=== PATIENT | male | born 1950 | race Caucasian/White ===

== ENCOUNTER 2020-04-30 09:53 | Outpatient (RCR) | payer MEDICARE, SELFPAY ==
--- NOTE | 2020-04-30 10:43 | PTOPEVAL ---
Thank you for referring Oneil Stokes to [facility].? The patient is scheduled to be seen for therapy? __2__x/week for 10 visits. Please review, sign, date and return this plan of care KARAN. I agree with and certify that the following plan of care is medically necessary. Referring Physician Date Admitting Provider: Attending Provider: MARCELLE SWIFT Referring Provider: *PT Outpatient Evaluation Start: 04/30/20 10:02 Freq: Status: Active Protocol: Document 04/30/20 10:02 BANDAR (Rec: 04/30/20 10:42 BANDAR [email or web address]) Therapy Assessment Status Assessment Status Assessment Status Evaluation Evaluation Information Problem Diagnosis s/p right knee replacment Onset 04/24/20 Subjective Information Pt. reports he underwent knee Query Text:As Reported By Patient/ replacement on 04/24/20. He Family states that he has been doing exercise at home consisting of heel slides and described quad sets 3 times a day. He states that he is currently using a walker. Pt. describes no complication with sleep. He reports current pain at 3/ 10 and can increase to an 8/10 that can be relieved with pain meds. He reports that his goal is to return to walking normal. 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 Pain Assessment Timing of Pain Assessment Timing of Pain Assessment Pre-Treatment Pain Scale Pain Scale Used Numeric (1 - 10) Self Report Pain Assessment Right Knee(s) Reported Pain Level 3 Pain Description Aching Pain Frequency Continuous Pain Aggravating Factors Exercise/Activity,Walking, Weight Bearing/Standing Pain Score Pain Sc
== END 2020-05-30 08:35 | disposition home or self-care (01) ==
LOC: CHSPT 09:53
PROVIDERS: PCP Internal Medicine
DX: M17.11 Unilateral primary osteoarthritis, right knee (principal)
CPT/HCPCS: 97016; 97110; 97161

== ENCOUNTER 2020-09-11 11:28 | Outpatient (CLI) | payer MEDICARE, SELFPAY ==
--- NOTE | ~2020-09-11 | XR_ITS ---
EXAMINATION: XR foot LT min 3V DATE: 09/11/2020 11:49 INDICATION: Left foot injury. TECHNIQUE: 4 views of left foot were obtained. COMPARISON: None. FINDINGS: Bone alignment is normal. No fracture. There is mild osteoarthritis of first metatarsophala ngeal joint and some of the interphalangeal joints and midfoot joints. There is severe osteoarthritis of first and third tarsometatarsal joints. There is an enthesophyte at plantar aspect of calcaneal t uberosity. IMPRESSION: 1. Polyarticular osteoarthritis. Reviewed, dictated and finalized at location B.
== END 2020-09-11 11:29 | disposition home or self-care (01) ==
LOC: CHSIMG 11:31
PROVIDERS: PCP Internal Medicine; Visit Provider Internal Medicine
DX: S99.922A Unspecified injury of left foot, initial encounter (principal)
CPT/HCPCS: 73630

== ENCOUNTER 2021-06-30 08:19 | Outpatient (CLI) | payer MEDICARE, SELFPAY ==
[2021-06-30 08:30] LABS: Basophils Absolute Auto 0.02 K/mm3 (0.00-0.10); Basophils Percent Auto 0.3 % (0.0-1.0); Eosinophils Absolute Auto 0.21 K/mm3 (0.02-0.50); Eosinophils Percent Auto 2.8 % (1.0-6.0); Hemoglobin 15.6 g/dL (12.4-15.3); Immature Granulocyte Absolute 0.02 K/mm3 (0.00-0.00); Immature Granulocyte Percent A 0.3 % (0.0-0.0); Lymphocytes Absolute Auto 2.34 K/mm3 (1.10-4.50); Lymphocytes Percent Auto 30.7 % (18.0-42.0); Mean Corpuscular HGB Conc 33.9 g/dL (32.0-36.0); Mean Corpuscular Hemoglobin 32.6 pg (27.0-31.0); Mean Corpuscular Volume 96.2 fL (78.0-102.0); Mean Platelet Volume 9.3 fl (8.7-11.0); Monocytes Percent Auto 9.2 % (2.0-11.0); Neutrophils Absolute Auto 4.3 K/mm3 (1.7-7.2); Neutrophils Percent Auto 56.7 % (50.0-70.0); Platelet Count Result 314 K/mm3 (150-420); Red Blood Count 4.78 M/mm3 (4.70-6.10); White Blood Count 7.6 K/mm3 (4.8-10.8)
[2021-06-30 08:45] LABS: Add Urine Microscopic? YES; Appearance Urine Clear (Clear); Bilirubin Urine Negative (Negative); Blood Urine 1+ (Negative); Color Urine Yellow (Yellow); Glucose Urine UA Negative (Negative); Ketones Urine Negative (Negative); Leukocyte Esterase Ur Negative (Negative); Nitrate Urine Negative (Negative); Protein Urine Negative (Negative); Specific Grav Ur >= 1.030 (1.010-1.020); Urobilinogen Urine 0.2 mg/dL (0.2-1.0)
[2021-06-30 08:54] LABS: Bacteria Urine Trace /hpf; Mucus Urine Moderate /lpf; RBC Urine 0-2 /hpf (0-2); WBC Urine None seen /hpf (0-3)
[2021-06-30 08:55] LABS: Hemoglobin A1C 5.9 % (<5.7)
[2021-06-30 09:39] LABS: Alanine Aminotransferase 26 U/L (16-63); Albumin Level 3.9 g/dL (3.4-5.0); Alkaline Phosphatase 83 U/L (46-116); Anion Gap 8 mmol/L (8-16); Aspartate Amino Transferase 15 U/L (15-37); Bilirubin,Total 0.4 mg/dL (0.00-1.00); Blood Urea Nitrogen 21 mg/dL (7-18); Carbon Dioxide 29 mmol/L (21-32); Chloride 104 mmol/L (98-108); Cholesterol 189 mg/dL (0-200); Estimated Glomerular Filt Rate > 60; Free T3 2.98 pg/mL (2.18-3.98); Free T4 Free Thyroxine 0.87 ng/dL (0.76-1.46); Glucose 114 mg/dL (70-99); HDL Direct 51 mg/dL (40-60); LDL Cholesterol Calculated 119 mg/dL (<130); Osmolality Calculated 296 mOsm/kg (285-295); Potassium 4.8 mmol/L (3.5-5.1); Prostate Specific Antigen 1.2 ng/mL (< OR = 4.0); Sodium 141 mmol/L (136-145); Thyroid Stimulating Hormone 1.18 uIU/mL (0.36-3.74); Total Protein 7.1 g/dL (6.4-8.2); Triglycerides 93 mg/dL (0-150)
== END 2021-06-30 08:20 | disposition home or self-care (01) ==
PROVIDERS: PCP Internal Medicine; Visit Provider Internal Medicine
DX: E78.2 Mixed hyperlipidemia (principal); Z00.00 Encounter for general adult medical examination without abnormal findings; I10 Essential (primary) hypertension; I48.0 Paroxysmal atrial fibrillation; Z12.5 Encounter for screening for malignant neoplasm of prostate; R73.01 Impaired fasting glucose
CPT/HCPCS: 36415; 80053; 80061; 81001; 83036; 83735; 84153; 84439; 84443; 84481; 85025; G0103

== ENCOUNTER 2022-02-17 08:24 | Outpatient (CLI) | payer MEDICARE, SELFPAY ==
[2022-02-17 08:51] LABS: Hemoglobin A1C 5.3 % (<5.7)
[2022-02-17 09:25] LABS: Anion Gap 4 mmol/L (8-16); Blood Urea Nitrogen 17 mg/dL (7-18); Carbon Dioxide 31 mmol/L (21-32); Chloride 108 mmol/L (98-108); Estimated Glomerular Filt Rate > 60; Glucose 112 mg/dL (70-99); Osmolality Calculated 298 mOsm/kg (285-295); Potassium 5.3 mmol/L (3.5-5.1); Sodium 143 mmol/L (136-145)
== END 2022-02-17 08:25 | disposition home or self-care (01) ==
LOC: CHSLAB 08:28
PROVIDERS: PCP Internal Medicine; Visit Provider Internal Medicine
DX: R73.01 Impaired fasting glucose (principal)
CPT/HCPCS: 36415; 80048; 83036

== ENCOUNTER 2022-09-03 07:45 | Outpatient (CLI) | payer MEDICARE, SELFPAY ==
[2022-09-03 08:03] LABS: Basophils Absolute Auto 0.04 K/mm3 (0.00-0.10); Basophils Percent Auto 0.5 % (0.0-1.0); Eosinophils Absolute Auto 0.19 K/mm3 (0.02-0.50); Eosinophils Percent Auto 2.5 % (1.0-6.0); Hematocrit 44.5 % (37.0-46.0); Hemoglobin 15.1 g/dL (12.4-15.3); Immature Granulocyte Absolute 0.04 K/mm3 (0.00-0.00); Immature Granulocyte Percent A 0.5 % (0.0-0.0); Lymphocytes Percent Auto 27.5 % (18.0-42.0); Mean Corpuscular HGB Conc 33.9 g/dL (32.0-36.0); Mean Corpuscular Hemoglobin 32.5 pg (27.0-31.0); Mean Corpuscular Volume 95.9 fL (78.0-102.0); Mean Platelet Volume 9.1 fl (8.7-11.0); Monocytes Absolute Auto 0.69 K/mm3 (0.10-0.90); Neutrophils Absolute Auto 4.6 K/mm3 (1.7-7.2); Platelet Count Result 320 K/mm3 (150-420); Red Blood Count 4.64 M/mm3 (4.70-6.10); Red Cell Distribution Width 13.2 % (11.6-14.4); White Blood Count 7.7 K/mm3 (4.8-10.8)
[2022-09-03 08:11] LABS: Appearance Urine Clear (Clear); Bilirubin Urine Negative (Negative); Blood Urine Negative (Negative); Color Urine Light Yellow (Yellow); Glucose Urine UA Negative (Negative); Ketones Urine Negative (Negative); Leukocyte Esterase Ur Negative LEU/UL (Negative); Nitrate Urine Negative (Negative); Protein Urine Negative (Negative); Specific Grav Ur 1.025 (1.010-1.020); Urobilinogen Urine 0.2 mg/dL (0.2-1.0)
[2022-09-03 08:13] LABS: Add Urine Microscopic? NO
[2022-09-03 08:21] LABS: Hemoglobin A1C 5.7 % (<5.7)
[2022-09-03 08:54] LABS: Alanine Aminotransferase 26 U/L (16-63); Albumin Level 3.7 g/dL (3.4-5.0); Alkaline Phosphatase 85 U/L (46-116); Anion Gap 7 mmol/L (8-16); Aspartate Amino Transferase 19 U/L (15-37); Bilirubin,Total 0.5 mg/dL (0.00-1.00); Blood Urea Nitrogen 19 mg/dL (7-18); Carbon Dioxide 29 mmol/L (21-32); Chloride 105 mmol/L (98-108); Cholesterol 202 mg/dL (0-200); Estimated Glomerular Filt Rate > 60; Free T3 3.04 pg/mL (2.18-3.98); Glucose 105 mg/dL (70-99); HDL Direct 52 mg/dL (40-60); LDL Cholesterol Calculated 132 mg/dL (<130); Osmolality Calculated 294 mOsm/kg (285-295); Potassium 4.8 mmol/L (3.5-5.1); Prostate Specific Antigen 1.3 ng/mL (< OR = 4.0); Sodium 141 mmol/L (136-145); Thyroid Stimulating Hormone 1.12 uIU/mL (0.36-3.74); Triglycerides 91 mg/dL (0-150)
== END 2022-09-03 07:46 | disposition home or self-care (01) ==
LOC: CHSLAB 07:49
PROVIDERS: PCP Internal Medicine; Visit Provider Internal Medicine
DX: R73.01 Impaired fasting glucose (principal); E78.2 Mixed hyperlipidemia; Z12.5 Encounter for screening for malignant neoplasm of prostate; N39.0 Urinary tract infection, site not specified
CPT/HCPCS: 36415; 80053; 80061; 81003; 83036; 84153; 84439; 84443; 84481; 85025; G0103

== ENCOUNTER 2023-05-05 16:22 | Outpatient (CLI) | payer MEDICARE, SELFPAY ==
[2023-05-05 16:37] LABS: Basophils Absolute Auto 0.03 K/mm3 (0.00-0.10); Basophils Percent Auto 0.3 % (0.0-1.0); Eosinophils Absolute Auto 0.14 K/mm3 (0.02-0.50); Eosinophils Percent Auto 1.6 % (1.0-6.0); Hematocrit 44.6 % (37.0-46.0); Hemoglobin 14.9 g/dL (12.4-15.3); Immature Granulocyte Absolute 0.02 K/mm3 (0.00-0.00); Immature Granulocyte Percent A 0.2 % (0.0-0.0); Lymphocytes Absolute Auto 1.99 K/mm3 (1.10-4.50); Lymphocytes Percent Auto 23.1 % (18.0-42.0); Mean Corpuscular HGB Conc 33.4 g/dL (32.0-36.0); Mean Corpuscular Hemoglobin 31.7 pg (27.0-31.0); Mean Corpuscular Volume 94.9 fL (78.0-102.0); Mean Platelet Volume 9.2 fl (8.7-11.0); Monocytes Absolute Auto 0.81 K/mm3 (0.10-0.90); Monocytes Percent Auto 9.4 % (2.0-11.0); Neutrophils Absolute Auto 5.6 K/mm3 (1.7-7.2); Neutrophils Percent Auto 65.4 % (50.0-70.0); Platelet Count Result 307 K/mm3 (150-420); Red Cell Distribution Width 12.7 % (11.6-14.4); White Blood Count 8.6 K/mm3 (4.8-10.8)
== END 2023-05-05 16:23 | disposition home or self-care (01) ==
LOC: CHSLAB 16:25
PROVIDERS: PCP Internal Medicine; Visit Provider Internal Medicine
DX: J02.9 Acute pharyngitis, unspecified (principal)
CPT/HCPCS: 36415; 85025

== ENCOUNTER 2023-06-02 07:59 | Outpatient (CLI) | payer MEDICARE, SELFPAY ==
--- NOTE | ~2023-06-02 | CT_ITS ---
CT scan of the Neck Technique: 2.5 mm axial scans were obtained through the neck after intravenous administration of 75 c c Omnipaque 350. Coronal and sagittal reconstructions of the neck were obtained. Dose reduction techn ique was used on this scan by utilizing automated exposure control and iterative reconstruction techn ique. The dose-length product (DLP) was 449.74 mGy-cm. Clinical History: Acute tonsillitis Findings: There is no evidence of any significant cervical lymphadenopathy. Several small, nonenlarged jugulo- digastric and posterior cervical lymph nodes are noted bilaterally. Parapharyngeal spaces appear norm al bilaterally. The parotid and submandibular glands appear normal. The pharyngeal mucosal spaces appear normal. No soft tissue masses are seen in the neck. The thyroid gland appears normal. Images of the lung apices reveal no abnormalities. Impression: No significant abnormalities noted. Reviewed, dictated and finalized at [facility]. ENT DRIVING INSTRUCTOR Impression: No significant abnormalities noted.
[2023-06-02 08:19] LABS: Estimated Glomerular Filt Rate > 60
== END 2023-06-02 08:00 | disposition home or self-care (01) ==
LOC: CHSIMG 08:01
PROVIDERS: PCP Internal Medicine; Visit Provider Internal Medicine
DX: J03.90 Acute tonsillitis, unspecified (principal)
CPT/HCPCS: 70491; Q9967

== ENCOUNTER 2023-10-13 07:48 | Outpatient (CLI) | payer MEDICARE, SELFPAY ==
[2023-10-13 08:02] LABS: Basophils Absolute Auto 0.03 K/mm3 (0.00-0.10); Basophils Percent Auto 0.4 % (0.0-1.0); Eosinophils Absolute Auto 0.16 K/mm3 (0.02-0.50); Eosinophils Percent Auto 2.2 % (1.0-6.0); Hematocrit 42.4 % (37.0-46.0); Hemoglobin 14.5 g/dL (12.4-15.3); Immature Granulocyte Absolute 0.03 K/mm3 (0.00-0.00); Immature Granulocyte Percent A 0.4 % (0.0-0.0); Lymphocytes Absolute Auto 1.79 K/mm3 (1.10-4.50); Lymphocytes Percent Auto 24.7 % (18.0-42.0); Mean Corpuscular HGB Conc 34.2 g/dL (32-36); Mean Corpuscular Hemoglobin 32.6 pg (27.0-31.0); Mean Corpuscular Volume 95.3 fL (78.0-102.0); Mean Platelet Volume 9.1 fl (8.7-11.0); Monocytes Absolute Auto 0.59 K/mm3 (0.10-0.90); Monocytes Percent Auto 8.1 % (2.0-11.0); Neutrophils Absolute Auto 4.65 K/mm3 (1.70-7.20); Neutrophils Percent Auto 64.2 % (50.0-70.0); Platelet Count Result 272 K/mm3 (150-420); Red Blood Count 4.45 M/mm3 (4.70-6.10); Red Cell Distribution Width 12.9 % (11.6-14.4); White Blood Count 7.3 K/mm3 (4.8-10.8)
[2023-10-13 08:04] LABS: Appearance Urine Clear (Clear); Bilirubin Urine Negative (Negative); Blood Urine Negative (Negative); Color Urine Light Yellow (Yellow); Glucose Urine UA Negative (Negative); Ketones Urine Negative (Negative); Leukocyte Esterase Ur Negative (Negative); Nitrate Urine Negative (Negative); Protein Urine Negative (Negative); Specific Grav Ur 1.025 (1.010-1.020); Urobilinogen Urine 0.2 mg/dL (0.2-1.0)
[2023-10-13 08:07] LABS: Add Urine Microscopic? NO
[2023-10-13 08:20] LABS: Hemoglobin A1C 5.7 % (<5.7)
[2023-10-13 08:52] LABS: Alanine Aminotransferase 24 U/L (16-63); Albumin Level 3.5 g/dL (3.4-5.0); Alkaline Phosphatase 78 U/L (46-116); Anion Gap 9 mmol/L (4-12); Aspartate Amino Transferase 14 U/L (15-37); Bilirubin,Total 0.3 mg/dL (0.00-1.00); Blood Urea Nitrogen 20 mg/dL (7-18); Calcium 8.5 mg/dL (8.5-10.1); Carbon Dioxide 23 mmol/L (21-32); Chloride 107 mmol/L (98-108); Cholesterol 185 mg/dL (0-200); Estimated Glomerular Filt Rate > 60; Free T3 2.56 pg/mL (2.18-3.98); Free T4 Free Thyroxine 0.78 ng/dL (0.76-1.46); Glucose 111 mg/dL (70-99); HDL Direct 47 mg/dL (40-60); LDL Cholesterol Calculated 123 mg/dL (<130); Magnesium 2.2 mg/dL (1.8-2.4); Osmolality Calculated 291 mOsm/kg (285-295); Potassium 4.5 mmol/L (3.5-5.1); Sodium 139 mmol/L (136-145); Thyroid Stimulating Hormone 1.01 uIU/mL (0.36-3.74); Total Protein 6.7 g/dL (6.4-8.2); Triglycerides 75 mg/dL (0-150)
--- NOTE | 2023-11-12 15:13 | P.PCNHOL_ITS ---
Holter/Event Monitor Holter/Event Monitor Date of procedure: 10/13/23 Holter/Event Procedure: Event Monitor Indications: PAF Conclusion: 1. 13 days event monitor between 10/13/23-10/29/23. There are 33 available transm issions for analysis. 2. Predominant rhythm is sinus rhythm. HR range 48-136 bpm; average HR 69 bpm. HR at 48 bpm was on 10/16/23 at 06:24. 3. There are occasional premature supraventricular complexes with total burden of 1%. There is 1 episode of atrial fibrillation at 95 bpm lasting <10 seconds on 10/27/23 at 09:39. 4. There are occasional premature ventricular complexes with total burden of 1%. No ventricular tachycardia. 5. No significant pauses greater than 2 seconds. 6. Patient reports 19 episodes of symptoms of skipped beat, symptoms other than listed which demonstrate sinus rhythm, HR range 53-94 bpm with 4 episodes of PAC's and 9 episodes of PVC's.
== END 2023-10-13 07:49 | disposition home or self-care (01) ==
LOC: CHSCARD 07:51
PROVIDERS: PCP Internal Medicine; Visit Provider Internal Medicine
DX: I48.0 Paroxysmal atrial fibrillation (principal); R73.01 Impaired fasting glucose; E78.2 Mixed hyperlipidemia; Z12.5 Encounter for screening for malignant neoplasm of prostate
CPT/HCPCS: 36415; 80053; 80061; 81003; 83036; 83735; 84153; 84439; 84443; 84481; 85025; 93270; G0103

== ENCOUNTER 2024-12-01 07:58 | Outpatient (CLI) | payer MEDICARE, SELFPAY ==
--- OUTSIDE RECORDS SUMMARY | 2024-12-01 08:01 | XMS_ITS | Encounter Summary ---
Author Organization [facility] Address [address] [place] [address] Care Team Providers Care Sewing Machine Operator Name Role Phone Evangelista Santacruz MD Primary Care Provider + [phone] Reason for Visit * Reason Onset Date Comments covid screening 10/25/2019 lm for the pt wi th ct info Encounter Details Date Type Department Care Team (Late st Contact Info) Description 10/25/2019 Telephone 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
--- OUTSIDE RECORDS SUMMARY | 2024-12-01 08:01 | XMS_ITS | Encounter Summary ---
Author Organization [facility] Address [address] [place] [address] Phone Care Team Providers Care Mri Assistant Name Role Phone Evangelista Santacruz MD Primary Care Provider [phone] Encounter Details Date Type Department Care Team (Latest Contact Info) Description 11/30/2024 Orders Only [facility] Scanning, Provider Social History Tobacco Use Types Packs/Day Years Used Date Smoking Tobacco: Never Smokeless Tobacco: Never Alcohol Use Standard Drinks/Week Comments Yes 0 (1 standard drink = 0.6 oz pur e alcohol) Personal Safety Answer Date Recorded Getting School Help Needed Not on file 05/27 Sex and Gender Information Value Date Recorded Sex Assigned at Not on file 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 Gender Identity Not on file Sexual Orientation Not on file documented as of this encounter Plan of Treatment Not on file documented as of this encounter Procedures Procedure Name Priority Date/Time Associated Diagnosis Comments CARDIOLOGY DOCUMENT SCAN 11/30/2024 documented in this encounter Results * Cardiology Document Scan (11/30/2024) Anatomical Region Laterality Modality Other us Provider Scanning CV CARDIAC SERVICES PROCEDURES Final Result documented in this encounter Visit Diagnoses Not on filedocumented in this encounter Care Teams Mri Assistant Relationship Specialty Start Date End Date Evangelista Santacruz MD [address] [place] [address] PCP - General Internal Medicine 08/22/19 documented as of this encounter
--- OUTSIDE RECORDS SUMMARY | 2024-12-01 08:01 | XMS_ITS | Encounter Summary ---
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 Gender Identity Not on file Sexual Orientation Not on file documented as of this encounter Plan of Treatment Not on file documented as of this encounter Procedures Procedure Name Priority Date/Time Associated Diagnosis Comments CARDIOLOGY DOCUMENT SCAN 10/13/2023 documented in this encounter Results * Cardiology Document Scan (10/13/2023) Anatomical Region Laterality Modality Other us Provider Scanning CV CARDIAC SERVICES PROCEDURES Final Result documented in this encounter Visit Diagnoses Not on filedocumented in this encounter Care Teams Correction Lieutenant Relationship Specialty Start Date End Date Evangelista Santacruz MD [address] [place] [address] PCP - General Internal Medicine 08/22/19 documented as of this encounter
--- OUTSIDE RECORDS SUMMARY | 2024-12-01 08:01 | XMS_ITS | Clinical Summary ---
Author Organization [facility] Address [facility] [place] [address] Care Team Providers Care Slackman Name Role Phone Evangelista Santacruz MD Primary Care Provider [phone] Jose Guadalupe Porras MD Unavailable Source Comments [facility],non-owned Affiliates and Associated Physician Practices is amultiple site organization consisting of ambulatory clinics and hospital sitesin [place], [place], [place]. This disclosure is being madepursuant to the Care Everywhere program and may not contain all information available regarding this patient. Last updated 18.[facility] Allergies No known active allergies Medications * Be aware that medications may not be up to date on this document. Alwaysverify current medications with the patient. brimonidine-violet olol (COMBIGAN) 0.2-0.5 % ophthalmic solution Instill 1 drop into both eyes 2 times daily Active celecoxib (CELEBREX) 200 MG capsule Take 1 (one) capsule by mouth 2 times daily 60 capsule 5 1 Active amoxicillin (AMOXIL) 500 MG capsule Take 4 (four) capsules by mouth 1 Hour prior to Dental Appointment 4 capsule 1 1 Active Active Problems Problem Noted Date Diagnosed Date Primary osteoarthritis of right knee 05/11/2018 Heart disease Social History Tobacco Use Types Packs/Day Years Used Date Smoking Tobacco: Never Smokeless Tobacco: Never Alcohol Use Standard Drinks/Week Comments Yes 0 (1 standard drink = 0.6 oz pur e alcohol) occas Sex and Gender Information Value Date Recorded Sex Assigned at Not on file Legal 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 Male 2:42 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 Gender Identity Not on file Sexual Orientation Not on file Last Filed Vital Signs Vital Sign Reading Time Taken Comments Blood Pressure 138/88 04/25/2020 11:33 AM ASSISTANT 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 Pulse 74 04/25/2020 11:33 AM ASSISTANT 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 Temperature 36.6 C (97.9 F) 04/25/2020 11:33 AM ASSISTANT 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 Respiratory Rate 18 04/25/2020 11:33 AM ASSISTANT 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 Oxygen Saturation 97% 04/25/2020 11:33 AM ASSISTANT 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 Inhaled Oxygen Concentration - - Weight 97.1 kg (214 lb) 04/24/2020 7:12 AM ASSISTANT 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 Height 177.8 cm (5' 10) 04/24/2020 7:12 AM ASSISTANT 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 Body Mass Index 30.71 04/24/2020 7:12 AM ASSISTANT 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 Plan of Treatment Health Maintenance Due Date Last Done Comments COLOGUARD (AGES 45-75) - COL ON CA SCREENING 1952 COLON MONITORING 1952 COLONOSCOPY - COLON CA SCREENING 1952 CT COLONOGRAPHY - COLON CA SCREENING 1950 Colorectal Cancer Screening 1952 FIT - COLON CA SCREENING 1952 FLEX SIG - COLON CA SCREENING 1952 LIPID TESTING 1952 HEPATITIS C SCREENING 02/17/1970 DTAP/TDAP/TD VACCINES (1 - Tdap) 02/21/1971 PNEUMOCOCCAL VACCINE 50+ (1 of 1 - PCV) 02/21/2002 ZOSTER VACCINE (1 of 2) 02/21/2002 SCREENING FOR DIABETES 04/24/2023 1, 04/17/2020 COVID-19 VACCINE (1 - 2023-2 5 season) 2023 DEPRESSION SCREENING 04/19/2024 INFLUENZA VACCINE (#1) 2024 Respiratory Syncytial Virus (RSV) Vaccine Pt: or over 60 yrs (1 - 1-dose 75+ series) 02/21/2027 HEPATITIS B VACCINE Aged Out No longe r eligible based on patient's age to complete this topic HIB VACCINE Aged Out No longer eligi ble based on patient's age to complete this topic HPV VACCINE Aged Out No longer eligi ble based on patient's age to complete this topic MENINGOCOCCAL (Group B) VACCINE SHARED DECISION-MAKING Aged Out No longer eligible based on patient's age to complete this topic MENINGOCOCCAL GROUPS A/C/Y/W VACCINE Aged Out No longer eligible b ased on patient's age to complete this topic Medical Devices Implanted Type Area Sales Specialist Device Identifier Shelf Expiration Date Model / Serial / Lot Cmnt Bone Djo Srg Cblt 40gm Hvisc Strl Implanted:Qty: 2 on 04/24/2020 by Jose Guadalupe Porras MD at [facility] [employer] 09/13/2020 [id number] / / [id number] Tray Tib 79mm Kn Cocr I Beam Implanted:Qty: 1 on 04/24/2020 by Jose Guadalupe Porras MD at [facility] [employer] 02/04/2030 [id number] / / [id number] Cmpnt Fem Kn Rt Cr Cmnt Prm Vngrd Intlk Implanted:Qty: 1 on 04/24/2020 by Jose Guadalupe Porras MD at [facility] Right: Knee [employer] 01/31/2030 [id number] / / [id number] Cmpnt Ptlr 31mm 1 Pg Wire Ascnt Arcm Kn Implanted:Qty: 1 on 04/24/2020 by Jose Guadalupe Porras MD at [facility] Right: Knee [employer] 02/28/2025 [id number] / / [id number] Brng [id number] Vngrd Arcm Kn Ant Stab Implanted:Qty: 1 on 04/24/2020 by Jose Guadalupe Porras MD at [facility] Right: Knee [employer] 01/27/2025 [id number] / / [id number] Procedures Procedure Name Priority Date/Time Associated Diagnosis Comments BASIC METABOLIC PANEL (CALCIUM TOTAL) STAT 04/24/2020 6:55 AM ASSISTANT 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 Preop examination from Last 3 Months or Most Recently Relevant to Health Maintenance Results * (ABNORMAL) BASIC METABOLIC PANEL (CALCIUM TOTAL) (04/24/2020 6:55 AM ASSISTANT 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) [facility] Glucose 116(H) 70 - 105 mg/dL 04/24/2020 7:20 AM ASSISTANT 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 [facility] Sodium 139 136 - 145 mmol/L 04/24/2020 7:20 AM ASSISTANT 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 [facility] Potassium 4.4 3.5 - 5.1 mmol/L 04/24/2020 7:20 AM [facility] Chloride 105 98 - 107 mmol/L 04/24/2020 7:20 AM [facility] CO2 28 23 - 31 mmol/L 04/24/2020 7:20 AM [facility] Calcium 9.6 8.4 - 10.4 mg/dL 04/24/2020 7:20 AM [facility] Anion Gap 6(L) 8 - 18 mmol/L 04/24/2020 7:20 AM [facility] Comment:Attention clinician: Reference Range change. BUN 17 8.4 - 25.7 mg/dL 04/24/2020 7:20 AM [facility] Creatinine 0.92 0.72 - 1.25 mg/dL 04/24/2020 7:20 AM [facility] eGFR by MDRD >60 >60 mL/min/1.7 3m2 04/24/2020 7:20 AM [facility] eGFR by MDRD >60 >60 mL/min/1.7 2 04/24/2020 7:20 AM [facility] Blood BLOOD SPECIMEN / Unknown Venipuncture / Unknown 04/24/2020 6:55 AM ASSISTANT 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 04/24/2020 7:05 AM ASSISTANT 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 Nichol Stewart DO LAB - CHEMISTRY ORDERABLES Rachel eugene Result [facility] [address] [place] [address] from Last 3 Months or Most Recently Relevant to Health Maintenance Insurance [facility] MEDIC[facility] ADV Advance Directives Documents on File Type Date Recorded Patient Food Service Coordinator Expl anation Adv Directive/Living Will/POA 04/26/2020 5:13 PM * Full Code (Latest Code Status on File) Date Activated Date Inactivated Comments 04/24/2020 11:26 AM 04/25/2020 5:23 PM Care Teams Slackman Relationship Specialty Start Date End Date Evangelista Santacruz MD PCP - General Internal Medicine 05/09/18 [place] [id number] [facility] [address] [place] [id number] Orthopedic Surgery 05/09/18
--- OUTSIDE RECORDS SUMMARY | 2024-12-01 08:01 | XMS_ITS | Clinical Summary ---
Author Organization [facility] Address [address] [place] [address] Care Team Providers Care Supervisor Green End Department Name Role Phone Evangelista Santacruz MD Primary Care Provider + [phone] Medications amoxicillin 500 mg tablet/capsule Take 4 tablet/capsu le (2,000 mg total) by mouth 09/23/2020 Active aspirin 81 mg chewable tablet Take 1 tablet (81 mg total) by mouth as needed Active Combigan 0.2-0.5 % ophthalmic solution INSTILL 1 DROP IN EACH EYE EVERY MORNING AND EVERY EVENING Active DAVIE Velez, 0.005 % dropperette 01/21/2024 Active Active Problems No known active problems Encounters Date Type Department Care Team Description 11/30/2024 Orders Only [facility] Scanning, Provider from Last 3 Months Surgical History Surgery Date Site/Laterality Comments KIDNEY STONE SURGERY CARPAL TUNNEL RELEASE Medical History Medical History Date Comments Kidney stone History of atrial fibrillation L AST EPISODE 2006 PER PATIENT Family History Medical History Relation Name Comments Heart disease Father Cancer Mother Relation Name Status Comments Father Mother Social History Tobacco Use Types Packs/Day Years Used Date Smoking Tobacco: Never Smokeless Tobacco: Never Tobacco Cessation:Counseling Given: Not Answered Alcohol Use Standard Drinks/Week Comments Yes 0 (1 standard drink = 0.6 oz pur e alcohol) Personal Safety Answer Date Recorded Getting School Help Needed Not on file 05/27 Sex and Gender Information Value Date Recorded Sex Assigned at Not on file 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 Gender Identity Not on file Sexual Orientation Not on file Obstetrics History Last Filed Vital Signs Vital Sign Reading Time Taken Comments Blood Pressure 137/82 02/10/2024 8:57 AM CDT Pulse 64 02/10/2024 8:57 AM CDT Temperature 36.5 C (97.7 F) 09/25/2019 7:43 AM CDT Respiratory Rate - - Oxygen Saturation 98% 02/10/2024 8:57 AM CDT Inhaled Oxygen Concentration - - Weight 100.2 kg (221 lb) 02/10/2024 8:57 AM CDT Height 180.3 cm (5' 11) 02/10/2024 8:57 AM CDT Body Mass Index 30.82 02/10/2024 8:57 AM CDT Plan of Treatment Health Maintenance Due Date Last Done Comments Colon Cancer Screening-Colonoscopy 1952 Depression Screening 1952 Fall Risk Assessment 1950 Hepatitis C Screening 1950 DTaP/Tdap/Td Vaccine (1 - Tdap) 02/21/1963 Hepatitis B Screening 02/21/1970 Zoster Vaccine (2 of 3) 07/22/2012 05/27/2012 Well Visit 65+ 02/21/2017 Pneumococcal vaccine 65+ (2 of 2 - PCV20 or PCV21) 05/02/2018 Influenza Vaccine (#1) 2024 Procedures Procedure Name Priority Date/Time Associated Diagnosis Comments CARDIOLOGY DOCUMENT SCAN 11/30/2024 from Last 3 Months Results * Cardiology Document Scan (11/30/2024) Anatomical Region Laterality Modality Other us Provider Scanning CV CARDIAC SERVICES PROCEDURES Final Result from Last 3 Months Insurance MEDICARE [facility] MEDICARE [facility]AGE [facility]IC[facility] [employer] MEDICARE Care Teams Supervisor Green End Department Relationship Specialty Start Date End Date Evangelista Santacruz MD [address] [place], [place] [id number] PCP - General Internal Medicine 08/22/19
[2024-12-01 08:14] LABS: Add Urine Microscopic? NO; Appearance Urine Clear (Clear); Glucose Urine UA Negative (Negative); Hematocrit 43.9 % (37.0-46.0); Hemoglobin 14.6 g/dL (12.4-15.3); Leukocyte Esterase Ur Negative (Negative); Mean Corpuscular HGB Conc 33.3 g/dL (32-36); Mean Corpuscular Hemoglobin 31.9 pg (27.0-31.0); Mean Corpuscular Volume 95.9 fL (78.0-102.0); Nitrate Urine Negative (Negative); Platelet Count Result 297 K/mm3 (150-420); Red Blood Count 4.58 M/mm3 (4.70-6.10); Specific Grav Ur <= 1.005 (1.010-1.020); White Blood Count 6.7 K/mm3 (4.8-10.8)
[2024-12-01 08:25] LABS: Hemoglobin A1C 5.9 % (<5.7)
[2024-12-01 08:43] LABS: Alanine Aminotransferase 21 U/L (6-50); Albumin Level 4.2 g/dL (3.5-5.1); Alkaline Phosphatase 75 U/L (38-126); Anion Gap 7 mmol/L (4-12); Aspartate Amino Transferase 24 U/L (17-59); Bilirubin,Total 0.8 mg/dL (0.2-1.3); Blood Urea Nitrogen 17 mg/dL (9-20); Calcium 9.4 mg/dL (8.4-10.2); Carbon Dioxide 27 mmol/L (22-30); Chloride 106 mmol/L (98-107); Cholesterol 190 mg/dL (0-200); Estimated Glomerular Filt Rate > 60; Glucose 118 mg/dL (65-110); HDL Direct 49 mg/dL; Magnesium 2.1 mg/dL (1.6-2.3); Osmolality Calculated 292 mOsm/kg (285-295); Potassium 4.9 mmol/L (3.4-5.0); Sodium 140 mmol/L (137-145); Total Protein 6.9 g/dL (6.3-8.2); Triglycerides 106 mg/dL (<150)
[2024-12-01 08:52] LABS: NT Pro B Type Natriuretic Pept 69 pg/mL (19.9-100)
[2024-12-01 09:00] LABS: Free T4 Free Thyroxine 1.02 ng/dL (0.78-2.19)
[2024-12-01 09:14] LABS: Prostate Specific Antigen 1.3 ng/mL (< OR = 4.0); Thyroid Stimulating Hormone 1.640 uIU/mL (0.465-4.680)
== END 2024-12-01 07:59 | disposition home or self-care (01) ==
PROVIDERS: PCP Internal Medicine; Visit Provider Internal Medicine
DX: R73.01 Impaired fasting glucose (principal); E78.2 Mixed hyperlipidemia; I48.0 Paroxysmal atrial fibrillation; R07.9 Chest pain, unspecified; Z12.5 Encounter for screening for malignant neoplasm of prostate; R06.00 Dyspnea, unspecified
CPT/HCPCS: 36415; 80053; 80061; 81003; 83036; 83735; 83880; 84153; 84439; 84443; 85027; G0103